=== PATIENT | male | born 1980 | race Caucasian/White ===

== ENCOUNTER 2020-08-07 11:36 | Emergency (ER) | payer BC, OTHER ==
[~2020-08-07] VITALS: Ht 162.6 cm; Wt 68.0 kg
[2020-08-07 12:18] VITALS: BP 111/76
== END 2020-08-07 13:41 | disposition home or self-care (01) ==
LOC: ER 11:52
DX: U07.1 COVID-19 (principal); R05 Cough; E11.9 Type 2 diabetes mellitus without complications; I10 Essential (primary) hypertension; Z87.442 Personal history of urinary calculi
CPT/HCPCS: 71045-TC

== ENCOUNTER 2022-07-07 05:29 | Emergency (ER) | payer BC ==
[~2022-07-07] VITALS: Ht 177.8 cm; Wt 68.0 kg
--- NOTE | 2022-07-07 05:45 | NUR ---
BIBSELF C/O RIGHT PELVIC PAIN X 1 DAY. HX OF KIDNEY STONES. PATIENT IS AAOX4. PAIN SCALE OF 6/10. PLACED COMFORTABLY IN BED. VITALS CHECKED.
--- NOTE | 2022-07-07 06:10 | NUR ---
PHYSICAL THERAPY ASSISTANT AT BEDSIDE
--- NOTE | 2022-07-07 06:10 | NUR ---
URINE SPECIMEN SENT TO LAB
[2022-07-07] MEDS ORDERED: KETOROLAC TROMETHAMINE 15 MG/ML VIAL ONE ×2 (06:18→08:04)
[2022-07-07 06:25] LABS: BASOPHILS # (AUTO) 0.1 K/uL (0.0-0.2); BASOPHILS % (AUTO) 0.9 % (0.0-2.0); EOSINOPHILS % (AUTO) 2.9 % (0.0-6.0); HEMATOCRIT 43 % (39-51); HEMOGLOBIN 14.5 g/dL (13.5-17.5); LYMPHOCYTES # (AUTO) 2.5 K/uL (0.8-4.8); LYMPHOCYTES % (AUTO) 38.5 % (20.0-44.0); MEAN CORPUSCULAR HGB CONC 34 g/dl (31.0-36.0); MEAN CORPUSCULAR VOLUME 93 fL (80-96); MONOCYTES # (AUTO) 0.8 K/uL (0.1-1.30); MONOCYTES % (AUTO) 12.1 % (2.0-12.0); NEUTROPHILS % (AUTO) 45.6 % (43.0-81.0); PLATELET COUNT (AUTO) 228 K/uL (150-450); RED BLOOD CELL COUNT(AUTO) 4.61 MIL/uL (4.5-6.0); WHITE BLOOD COUNT (AUTO) 6.6 K/uL (4.3-11.0)
[2022-07-07] MEDS: KETOROLAC TROMETHAMINE INJ 30 MG/ML VIAL IV ONE ×2 (06:31→08:05)
[2022-07-07] MEDS: IV NS 0.9% 1,000 ML BAG IV ONE (06:31)
[2022-07-07 07:14] LABS: CALCIUM, SERUM 8.7 mg/dL (8.5-10.1); CREATININE 1.1 mg/dL (0.6-1.3); POTASSIUM 4.3 mmol/L (3.5-5.1)
--- NOTE | 2022-07-07 07:17 | NUR ---
REPORT GIVEN TO DUONG GOOD
[2022-07-07 07:31] LABS: BILIRUBIN,URINE NEGATIVE (NEGATIVE); COLOR,URINE YELLOW (YELLOW); LEUKOCYTE ESTERASE ,URINE NEGATIVE (NEGATIVE); NITRITE, URINE NEGATIVE (NEGATIVE); PROTEIN,URINE NEGATIVE (NEGATIVE); UGLUCOSE NEGATIVE (NEGATIVE); UROBILINOGEN,URINE 0.2 EU/dL (0.2)
[2022-07-07] MEDS ORDERED: TAMS-12 PO (08:50)
[2022-07-07] MEDS ORDERED: KETO10TA2 PO (08:50)
--- NOTE | 2022-07-07 09:01 | NUR ---
Patient discharged to home in stable condition. Written and verbal after care instructions given. Patient verbalizes understanding of instruction.
--- NOTE | 2022-07-07 09:01 | NUR ---
IV removed. Catheter intact and site benign. Pressure and 4x4 applied to site. No bleeding noted.
[2022-07-07 09:02] VITALS: BP 133/68
== END 2022-07-07 09:03 | disposition home or self-care (01) ==
LOC: ER 05:31
DX: N23 Unspecified renal colic (principal); Z87.442 Personal history of urinary calculi; Z79.899 Other long term (current) drug therapy
CPT/HCPCS: 99284; 74176; 96374; 96376; 85025; 80048; 81003; 36415; J7030; J1885 ×2